=== PATIENT | female | born 1970 | race Caucasian/White ===

== ENCOUNTER 2018-03-17 10:35 | Observation (INO) ==
[~2018-03-17 10:35] MED LIST: CefOXitin Inj 2 GM in Sodium Chloride 0.9% 100 ML IV ONE; LIDOCAINE W/ SODIUM BICARB 0.5 ML SYR ONE; LIDOCAINE W/ SODIUM BICARB 0.5 ML SYR SUBD ONE; Lactated Ringers 1,000 ML PRIMARY IV ONE; Nasal Sanitizer POPSWAB ampule 3 AMP (Nozin) PREOP DOSE ENOS SCH; Sodium Chloride 0.9% 100 ML IV ONE
[2018-03-17] MEDS ORDERED: KETAMINE 100 MG/1 ML - 5 ML ONE (11:04)
[2018-03-17] MEDS ORDERED: LIDOCAINE MPF 2% - 5 ML (20 MG/1 ML) ONE (11:04)
[2018-03-17] MEDS ORDERED: fentaNYL Inj 250 MCG/5 ML VIAL ONE (11:04)
[2018-03-17] MEDS ORDERED: MIDAZOLAM 5 MG/1 ML ONE (11:04)
[2018-03-17] MEDS ORDERED: PROPOFOL 10 MG/1 ML (200 MG/20 ML) VIAL IV ONE (11:04)
[2018-03-17] MEDS ORDERED: ROCURONIUM 10 MG/1 ML - 5 ML VIAL IVP ONE (11:07)
[2018-03-17] MEDS: Lactated Ringers 1,000 ML PRIMARY IV SCH ×3 (11:20→22:43)
[2018-03-17 11:39] LABS: BILIRUBIN,URINE NEGATIVE (NEG); CLARITY,URINE CLEAR (CLEAR); COLOR,URINE YELLOW (Y); GLUCOSE, URINE (UA) NEGATIVE (NEG); OCCULT BLOOD,URINE NEGATIVE (NEG); PH,URINE 5.5 (5.0-8.5); PROTEIN,URINE NEGATIVE (NEG); UROBILINOGEN,URINE 0.2 EU/dL (0.2)
[2018-03-17 11:40] LABS: URINE SAMPLE TYPE CLEAN CATCH URINE
[2018-03-17] MEDS ORDERED: ONDANSETRON 4 MG/2 ML VIAL ONE (11:59)
[2018-03-17] MEDS ORDERED: SCOPOLAMINE HYDROBROMIDE 1.5 MG - 1 EACH PATCH TRANSDERM ONE (11:59)
[2018-03-17] MEDS ORDERED: DEXAMETHASONE PF 10 MG/1 ML VIAL ONE (11:59)
[2018-03-17] MEDS ORDERED: Acetaminophen 1000mg Inj 1,000 MG/100 ML VIAL IV ONE (12:00)
[2018-03-17] MEDS ORDERED: BUPIVACAINE 0.5% W/EPI MPF -30 ML VIAL IV ONE (12:55)
[2018-03-17] MEDS ORDERED: LIDOCAINE HCL 2 % 10 ML JELLY URO-JECT TOPICAL ONE (12:56)
[2018-03-17] MEDS ORDERED: Lactated Ringers 2,000 ML PRIMARY IV ONE (13:20)
[2018-03-17] MEDS ORDERED: SUFENTANIL 50 MCG/1 ML ONE (13:35)
[2018-03-17] MEDS ORDERED: Opium-Belladonna 60-16.2mg 1 EACH SUPP.RECT RECTAL ONE (14:07)
[2018-03-17] MEDS ORDERED: KETOROLAC 30 MG/1 ML VIAL ONE (14:15)
[2018-03-17] MEDS ORDERED: HYDROmorphone 2 MG/1 ML ONE (14:15)
[2018-03-17] MEDS ORDERED: SUGAMMADEX SODIUM 200 MG/2 ML VIAL IV ONE (14:16)
[2018-03-17] MEDS ORDERED: LIDOCAINE HCL 2 % 10 ML JELLY URO-JECT TOPICAL PRN ×2 (15:27→22:26)
[2018-03-17] MEDS ORDERED: Ondansetron ODT Tab 8 MG TAB PO PRN (15:27)
[2018-03-17] MEDS ORDERED: Ertapenem Inj 1 GM in Sodium Chloride 0.9% 100 ML IV SCH (15:30)
--- NOTE | 2018-03-17 15:38 | OB.OP.NOTE ---
Operative Report Surgeon: Dr. Denson Director Custom: Jaime Trent MD Anesthesia Type: General Anesthesia Provider: Randolph Benito CRNA Surgery Date: 03/17/18 Preoperative Diagnosis: MMR/Dysmenorrhea/Fibroid Uterus/QUE Postoperative Diagnosis: Same Procedure: da Hal Hysterectomy/BSO/Cystoscopy/TVT-O Estimated Blood Loss (mL): 75 Fluids: 2800 ml Complications: None identified Findings at Surgery: Enlarged, multiply fibroid uterus. Normal tubes and ovaries. Dense scarring of the vesicouterine junction. Dense bowel and omental adhesions in the upper abdomen near the falciform ligament. No visible evidence of bowel, bladder, or ureter injury. At cysto, both ureteral orifices were seen to eject urine and the bladder was intact. Good placement of the TVT mesh without tension was noted. Indications for the Procedure: MMR/Dysmenorrhea/Fibroids/QUE Description of Procedure: See dictated operative report. Plan: Observation overnight. Home tomorrow.
--- NOTE | 2018-03-17 15:48 | CRNA.PROGR ---
Anesthesia Recovery Phase I - Post Anesthesia Evaluation Patient's Condition on Arrival in Phase I: Stable Pain Level: 0
[2018-03-17] MEDS: BUTORPHANOL TARTRATE 2 MG/1 ML VIAL IVP PRN ×2 (15:55→16:10)
[2018-03-17] MEDS ORDERED: HYDROmorphone 2 MG/1 ML IVP PRN (15:58)
[2018-03-17] MEDS ORDERED: BUTORPHANOL TARTRATE 2 MG/1 ML VIAL ONE (15:58)
[2018-03-17] MEDS ORDERED: LIDOCAINE W/ SODIUM BICARB 0.5 ML SYR SUBD PRN (15:58)
--- NOTE | 2018-03-17 15:58 | CRNA.PROGR ---
Anesthesia Time - Procedure/Recovery Time Start Date: 03/17/18 End Date: 03/17/18 Anesthesia : Time In: 13:16 Anesthesia : Time Out: 15:48 Anesthesia : Total Time: 152 - Total Anesthesia Time Total Anesthesia Time (minutes): 152 - Other Weight: 92.079 kg Height: 5 ft 7 in Body Mass Index (BMI): 31.8 Physical Status: P2 Anesthesia Type: General Anesthesia : ET
[2018-03-17] MEDS: KETOROLAC 15 MG/1 ML VIAL IVP SCH (17:41)
[2018-03-17] MEDS: IBUPROFEN 800 MG TABLET PO PRN (18:36)
[2018-03-17] MEDS: oxyCODONE-ACETAMINOPHEN 5-325 TAB PO PRN (20:08)
[2018-03-17] MEDS: DOCUSATE 100 MG CAPSULE PO SCH (20:09)
[2018-03-18] MEDS: KETOROLAC 15 MG/1 ML VIAL IVP SCH ×3 (00:38→13:00)
[2018-03-18] MEDS: IBUPROFEN 800 MG TABLET PO PRN (05:55)
[2018-03-18] MEDS: DOCUSATE 100 MG CAPSULE PO SCH (08:37)
[2018-03-18] MEDS: oxyCODONE-ACETAMINOPHEN 5-325 TAB PO PRN ×2 (08:37→13:01)
[2018-03-18] MEDS ORDERED: ESTROGENS,CONJUGATED 0.625 MG TABLET PO SCH (09:00)
--- NOTE | 2018-03-18 09:28 | PDOC(PROG) ---
Subjective Post Op Day: 1 Pain Management: PO Posey Catheter: No Flatus: Yes Diet: Regular Ambulating: Yes Concerns / Additional Information: The patient is doing well this AM. Pain is well managed. Awaiting voiding trial after posey was removed. Home after that. Assesstment / Plan Assessment / Plan: POD 1, doing well. Home after voiding trial.
--- NOTE | 2018-03-18 09:30 | DCSUMMARY ---
Hospitalization Summary Admit Date: 03/17/18 Discharge Date: 03/18/18 Primary Diagnosis:: MMR/Dysmenorrhea/Fibroids/QUE Hospital Course: Uncomplicated robotic hysterectomy/BSO with TVT-O. Pt. observed overnight secondary to later completion time for surgery. She was discharged to home on POD 1 in good condition. Exam - Vitals Vital Signs: Vital Signs Temperature 97.7 F Temperature Source Temporal Artery Scan Pulse Rate [Pulse Oximeter] 64 Pulse Rate 67 Respiratory Rate 16 Blood Pressure [Right Arm] 114/73 Blood Pressure 121/78 Pulse Ox 98 Oxygen Flow Rate 4 Oxygen Delivery Method Nasal Cannula Height 5 ft 7 in Weight 202 lb 1.6 oz
[2018-03-18 12:47] VITALS: RESP 20; O2SAT 95
[2018-03-18 12:58] VITALS: BP 125/79; TEMP 98.3
== END 2018-03-18 13:45 | disposition home or self-care (01) ==
LOC: MED/SURG 10:35 → OR 10:35
PROVIDERS: ADMIT Obstetrics & Gynecology; ATTEND Obstetrics & Gynecology